=== PATIENT | male | born 1980 | race Caucasian/White ===

== ENCOUNTER 2018-03-03 09:25 | Emergency (ER) | payer MEDICARE ==
[~2018-03-03] VITALS: Ht 188 cm; Wt 65.8 kg
[~2018-03-03 09:25] MED LIST: BENZ2 PO; CLON.5 PO; HALO5 PO; QUET100 PO; QUET200 PO; QUET300 PO; RISP.25; RISP1 PO; RXLORA1 PO; TRAZ100 PO; Zyprexa10 MG PO
[2018-03-03] MEDS ORDERED: BENZ2 PO (10:21)
[2018-03-03] MEDS ORDERED: QUET25 PO (10:21)
== END 2018-03-03 13:10 | disposition home or self-care (01) ==
LOC: ER 09:25
DX: F20.0 Paranoid schizophrenia (principal); F15.90 Other stimulant use, unspecified, uncomplicated; F17.210 Nicotine dependence, cigarettes, uncomplicated
CPT/HCPCS: 99283

== ENCOUNTER 2018-03-30 08:13 | Emergency (ER) | payer MEDICARE ==
[~2018-03-30] VITALS: Ht 188 cm; Wt 62.1 kg
[~2018-03-30 08:13] MED LIST changes: +QUET25 PO
[2018-03-30 09:18] LABS: BASOPHILS ABSOLUTE AUTO 0.03 K/mm3 (0.00-0.23); BASOPHILS PERCENT AUTO 1 % (0-2); EOSINOPHILS ABSOLUTE AUTO 0.02 K/mm3 (0.00-0.68); EOSINOPHILS PERCENT AUTO 0 % (0-6); Hematocrit 40.7 % (37.0-53.0); Hemoglobin 14.1 g/dL (13.5-17.5); IMMATURE GRAN ABSOLUTE AUTO 0.01 K/mm3 (0.00-0.10); IMMATURE GRAN PERCENT AUTO 0 % (0-1); LYMPHOCYTES ABSOLUTE AUTO 1.99 K/mm3 (0.84-5.20); LYMPHOCYTES PERCENT AUTO 34 % (21-46); MONOCYTES ABSOLUTE AUTO 0.54 K/mm3 (0.16-1.47); MONOCYTES PERCENT AUTO 9 % (4-13); Mean Corpuscular HGB Conc 34.6 g/dL (31.5-36.5); Mean Corpuscular Volume 87 fL (80-100); Mean Platelet Volume 9.7 fL (9.1-12.4); NEUTROPHILS ABSOLUTE AUTO 3.25 K/mm3 (1.96-9.15); NEUTROPHILS PERCENT AUTO 56 % (41-73); Platelet Count 194 K/mm3 (150-400); RDW Coefficient Variation 12.6 % (11.7-14.2); RDW Standard Deviation 39.8 fL (35.1-46.3); White Blood Cell Count 5.84 K/mm3 (4.00-11.30)
[2018-03-30 09:42] LABS: Alanine Aminotransfer (ALT/SGP 78 U/L (12-78); Albumin, Blood 4.3 g/dL (3.4-5.0); Albumin/Globulin Ratio 1.2 (0.8-1.8); Alk Phos 98 U/L (50-136); Anion Gap 8 mmol/L (6-16); Aspartate Aminotrans (AST/SGOT 37 U/L (12-37); Bilirubin, Total 0.3 mg/dL (0.1-1.0); Blood Urea Nitrogen 6 mg/dL (8-24); Bun/Creatinine Ratio 8.2 (12.0-20.0); CO2, Blood 29 mmol/L (21-32); Chloride, Blood 107 mmol/L (98-108); Creatinine, Blood 0.74 mg/dL (0.60-1.20); Ethanol (Alcohol), Blood, Med 3 mg/dL; Globulin, Blood 3.7 g/dL (2.2-4.0); Glomerular Filtration Rate >60 (60-); Glucose, Blood 92 mg/dL (70-99); Potassium, Blood 3.7 mmol/L (3.5-5.5); Salicylate <1.7 mg/dL (2.8-20.0); Sodium, Blood 144 mmol/L (136-145)
[2018-03-30 10:34] LABS: Acetaminophen, Random <2.0 ug/mL (10.0-30.0)
[2018-03-30 12:18] LABS: Bilirubin, Urine Neg (Neg); Blood, Urine Neg (Neg); Glucose Qualitative, Urine Neg (Neg); Ketones, Urine Neg (Neg); Leukocyte Esterase, Urine Neg (Neg); Nitrite, Urine Neg (Neg); Protein, Urine Neg (Neg); Urobilinogen, Urine NORM (Normal)
[2018-03-30 12:41] LABS: U Amphetamine Screen Not Detected; U Barbituate Screen Not Detected; U Benzodiazapine Screen Not Detected; U Buprenorphine Screen Not Detected; U Cannabinoids Screen Not Detected; U Cocaine Screen Not Detected; U Methadone Screen Not Detected; U Methamphetamine Screen Not Detected; U Opiates Screen Not Detected; U Oxycodone Screen Not Detected; U Phencyclidine Screen Not Detected; U Propoxyphene Screen Not Detected
[2018-03-30 12:42] LABS: Appearance, Urine Clear (Clear); Color, Urine Pale Yellow (P-Yellow)
== END 2018-03-30 12:39 | disposition home or self-care (01) ==
LOC: ER 08:13
PROVIDERS: Emergency Medicine
DX: F20.9 Schizophrenia, unspecified (principal); F17.210 Nicotine dependence, cigarettes, uncomplicated; Z59.0 Homelessness; Z79.899 Other long term (current) drug therapy
CPT/HCPCS: 80053; 81003; 84443; 85025; G0480

== ENCOUNTER 2018-07-05 00:16 | Emergency (ER) | payer MEDICARE ==
[~2018-07-05] VITALS: Ht 185.4 cm; Wt 59.0 kg
[2018-07-05] MEDS ORDERED: BENADRYL25 MG PO (04:32)
== END 2018-07-05 00:45 | disposition home or self-care (01) ==
LOC: ER 00:16
DX: F15.10 Other stimulant abuse, uncomplicated (principal); F10.10 Alcohol abuse, uncomplicated; F20.5 Residual schizophrenia; Z59.0 Homelessness; F17.210 Nicotine dependence, cigarettes, uncomplicated
CPT/HCPCS: 99283

== ENCOUNTER 2018-07-05 04:11 | Emergency (ER) | payer MEDICARE ==
[~2018-07-05] VITALS: Ht 188 cm; Wt 59.0 kg
[2018-07-05] MEDS ORDERED: BENADRYL25 MG PO (04:32)
== END 2018-07-05 04:37 | disposition home or self-care (01) ==
LOC: ER 04:11
DX: G47.00 Insomnia, unspecified (principal); F17.210 Nicotine dependence, cigarettes, uncomplicated; Z79.899 Other long term (current) drug therapy
CPT/HCPCS: 99281-25

== ENCOUNTER 2018-07-06 03:58 | Emergency (ER) | payer MEDICARE ==
[~2018-07-06] VITALS: Ht 188 cm; Wt 59.0 kg
[~2018-07-06 03:58] MED LIST changes: +BENADRYL25 MG PO
== END 2018-07-06 04:02 | disposition home or self-care (01) ==
LOC: ER 03:58
DX: T73.0XXA Starvation, initial encounter (principal); Z59.0 Homelessness; Z79.899 Other long term (current) drug therapy; F17.210 Nicotine dependence, cigarettes, uncomplicated
CPT/HCPCS: 99281

== ENCOUNTER 2018-07-07 01:17 | Emergency (ER) | payer MEDICARE ==
[~2018-07-07] VITALS: Ht 188 cm; Wt 72.6 kg
== END 2018-07-07 02:02 | disposition home or self-care (01) ==
LOC: ER 01:17
DX: F19.20 Other psychoactive substance dependence, uncomplicated (principal); F20.9 Schizophrenia, unspecified; F17.210 Nicotine dependence, cigarettes, uncomplicated; Z79.899 Other long term (current) drug therapy
CPT/HCPCS: 99282

== ENCOUNTER 2018-07-08 19:58 | Emergency (ER) | payer MEDICARE ==
[~2018-07-08] VITALS: Ht 180.3 cm; Wt 52.2 kg
== END 2018-07-08 21:15 | disposition home or self-care (01) ==
LOC: ER 19:58
DX: F20.9 Schizophrenia, unspecified (principal); Z79.899 Other long term (current) drug therapy
CPT/HCPCS: 99284

== ENCOUNTER 2018-07-10 02:08 | Emergency (ER) | payer MEDICARE ==
[~2018-07-10] VITALS: Ht 180.3 cm; Wt 52.2 kg
== END 2018-07-10 02:38 | disposition home or self-care (01) ==
LOC: ER 02:08
DX: R45.1 Restlessness and agitation (principal); Z79.899 Other long term (current) drug therapy; F20.9 Schizophrenia, unspecified
CPT/HCPCS: 99283

== ENCOUNTER 2018-07-25 07:23 | Emergency (ER) | payer MEDICARE ==
[~2018-07-25] VITALS: Ht 188 cm; Wt 59.0 kg
== END 2018-07-25 07:50 | disposition left against medical advice (07) ==
LOC: ER 07:23
DX: Z53.21 Procedure and treatment not carried out due to patient leaving prior to being seen by health care provider (principal); F17.200 Nicotine dependence, unspecified, uncomplicated; Z59.0 Homelessness

== ENCOUNTER 2018-07-26 03:52 | Emergency (ER) | payer MEDICARE ==
[~2018-07-26] VITALS: Ht 188 cm; Wt 59.0 kg
== END 2018-07-26 04:00 | disposition home or self-care (01) ==
LOC: ER 03:52
DX: Z00.00 Encounter for general adult medical examination without abnormal findings (principal); F17.200 Nicotine dependence, unspecified, uncomplicated
CPT/HCPCS: 99282

== ENCOUNTER 2021-02-04 13:09 | Day surgery (SDC) | payer MEDICARE, OTHER ==
[~2021-02-04] VITALS: Ht 188 cm; Wt 90.6 kg
[~2021-02-04 13:09] MED LIST changes: +OLAN20 PO; +Seroquel Xr400 MG PO
--- NOTE | 2021-02-04 13:27 | NUR ---
02/04/21 1327 Barb Mclain 2 IV ATTEMPTS AXA IST ATTEMPT R HAND INFILTRATED 2ND ATTEMPT R HAND SUCCESSFUL
== END 2021-02-04 14:20 | disposition home or self-care (01) ==
LOC: ORSCSDS 13:09
PROVIDERS: Internal Medicine Gastroenterology
PROC: 0DB48ZX Excision of Esophagogastric Junction, Via Natural or Artificial Opening Endoscopic, Diagnostic (ICD-10-PCS; principal; 2021-02-04 14:30)
DX: R12 Heartburn (principal); K20.90 Esophagitis, unspecified without bleeding; K31.7 Polyp of stomach and duodenum; K44.9 Diaphragmatic hernia without obstruction or gangrene; F20.9 Schizophrenia, unspecified; Z79.899 Other long term (current) drug therapy; K22.8 Other specified diseases of esophagus
CPT/HCPCS: 88305; 88312; J2250; J2704; J7120

== ENCOUNTER 2023-08-17 08:06 | Day surgery (SDC) | payer MEDICARE, OTHER ==
[~2023-08-17] VITALS: Ht 182.9 cm; Wt 81.5 kg
[2023-08-17 10:32] VITALS: BP 176/75
== END 2023-08-17 10:30 | disposition home or self-care (01) ==
LOC: ORSCSDS 08:06
PROVIDERS: Internal Medicine Gastroenterology
PROC: 0DBN8ZX Excision of Sigmoid Colon, Via Natural or Artificial Opening Endoscopic, Diagnostic (ICD-10-PCS; principal; 2023-08-17 09:30)
DX: Z12.11 Encounter for screening for malignant neoplasm of colon (principal); K63.5 Polyp of colon; K21.9 Gastro-esophageal reflux disease without esophagitis; Z86.19 Personal history of other infectious and parasitic diseases; F20.9 Schizophrenia, unspecified; F17.210 Nicotine dependence, cigarettes, uncomplicated; Z79.899 Other long term (current) drug therapy
CPT/HCPCS: 88305; J2250; J2704; J7120